=== PATIENT | female | born 1980 | race Two or more races ===

== ENCOUNTER 2020-09-05 12:14 | Emergency (ER) | payer SELFPAY ==
[~2020-09-05] VITALS: Ht 162.6 cm; Wt 85.0 kg
[2020-09-05 12:58] LABS: BASOPHILS % (AUTO) 1 % (0-1); EOSINOPHILS % (AUTO) 0 % (1-7); LYMPHOCYTES % (AUTO) 22 % (22-44); MEAN CORPUSCULAR HEMOGLOBIN 28.6 pg (27.0-34.8); MEAN CORPUSCULAR HGB CONC 33.4 g/dL (32.4-35.8); MEAN PLATELET VOLUME 7.8 fL (7.4-10.4); MONOCYTES % (AUTO) 8 % (2-9); NEUTROPHILS % (AUTO) 70 % (42-75); PLATELET COUNT 174 x10^3/uL (130-400); RED BLOOD COUNT 5.45 x10^6/uL (3.82-5.3); RED CELL DISTRIBUTION WIDTH 14.8 % (9.6-15.2)
[2020-09-05 13:03] LABS: MD NO
[2020-09-05 13:14] LABS: ALBUMIN 3.7 g/dL (3.4-5.0); ANION GAP 6 mmol/L (5-15); CALCIUM 8.9 mg/dL (8.5-10.1); CHLORIDE 108 mmol/L (98-107); CREATININE 0.82 mg/dL (0.55-1.02); TROPONIN I < 0.015 ng/mL (0.000-0.045)
[2020-09-05 13:52] VITALS: BP 119/67
--- NOTE | 2020-09-05 13:58 | NUR ---
TO RM 27 FROM [employer]. STATES SHE HAS NOT BEEN FEELING WELL FOR 10 DAYS: EPIGASTRIC PAIN, NAUSEA AND DIFFICULTY EATING WITH COUGH. AMBULATED TO BATHROOM AND PROVIDED URINE SAMPLE.
[2020-09-05 14:04] LABS: MICROSCOPIC NOT IND
--- NOTE | 2020-09-05 15:28 | NUR ---
PT REC'VD DISCHARGE INSRUCTIONS AND EDUCATION. FAMILY BEDSIDE TO TRANSLATE INSTRUCTIONS. PT HAD NO FURTHER QUESTIONS. PT AMBULATED TO DISCHARGE AREA, STEADY GAIT.
== END 2020-09-05 15:31 | disposition home or self-care (01) ==
LOC: ED 14:30
DX: U07.1 COVID-19 (principal); B34.9 Viral infection, unspecified; R07.89 Other chest pain; R06.02 Shortness of breath; M79.10 Myalgia, unspecified site
CPT/HCPCS: 36415; 71045; 80048; 81003; 82040; 84484; 85025; 87635; 93005; 99285